=== PATIENT | male | born 1970 | race American Indian/Alaskan Native ===

== ENCOUNTER 2019-04-26 12:19 | Emergency (ER) | payer MEDICARE ==
[2019-04-26 12:28] VITALS: BP 131/89
--- NOTE | 2019-04-26 12:28 | Emergency Department Report ---
Blank Doc - Documentation Documentation: 48 y o male presents with swelling, redness to right elbow x 4 days states last week he hit his elbow on the bed while sleeping xr acc
--- NOTE | 2019-04-26 12:46 | XRay Report ---
RIGHT ELBOW, 2 views: HISTORY: Pain and swelling. There is moderate posterior soft tissue swelling. A small olecranon spur is identified. The bony structures are intact. No evidence for fracture, bone lesion or large joint effusion. IMPRESSION: Posterior soft tissue swelling. Small olecranon spur. Olecranon bursitis?
--- NOTE | 2019-04-26 13:59 | Emergency Department Report ---
ED Upper Extremity Inj HPI - General Chief Complaint: Skin/Abscess/Foreign Body Stated Complaint: BUMP ON R ELBOW Time Seen by Provider: 04/26/19 12:25 Source: patient Mode of arrival: Ambulatory Limitations: No Limitations - History of Present Illness Initial Comments: This is a 48-year-old -[place] female presents to the emergency room with swelling and pain over right elbow for one week. The patient states he bumped his elbow against bed rail about 4-5 days ago and been in pain ever since. He reports pain is worse with movement. He denies drainage, fever, weakness, numbness or tingling. Complaint: Injury to:: right, elbow Onset/Timin -: days(s) Other Extremity Injury: Elbow: Right Other Injuries: none Handedness: right Place: home Severity scale (0 -10): 4 Improves With: none Worsens With: movement of extremity Context: direct blow Associated Symptoms: denies other symptoms - Related Data Previous Rx's Medication Instructions Recorded Last Taken Type Ibuprofen [Motrin 800 MG tab] 800 mg PO Q8HR PRN #20 tablet 04/26/19 Unknown Rx Allergies Allergy/AdvReac Type Severity Reaction Status Date / Time No Known Allergies Allergy Unverified 04/26/19 12:19 ED Review of Systems ROS: Stated complaint: BUMP ON R ELBOW Other details as noted in HPI Constitutional: denies: chills, fever Respiratory: denies: cough, shortness of breath, wheezing Cardiovascular: denies: chest pain, palpitations Gastrointestinal: denies: abdominal pain, nausea, diarrhea Musculoskeletal: joint swelling (right elbow), arthralgia (right elbow pain). denies: back pain Skin: denies: rash, lesions Neurological: denies: headache, weakness, paresthesias Psychiatric: denies: anxiety, depression ED Past Medical Hx - Past Medical History Previous Medical History?: No - Surgical History Past Surgical History?: No - Social History Smoking Status: Never Smoker Substance Use Type: None - Medications Home Medications: Home Medications Medication Instructions Recorded Confirmed Last Taken Type Ibuprofen [Motrin 800 MG tab] 800 mg PO Q8HR PRN #20 tablet 04/26/19 Unknown Rx ED Physical Exam - General Limitations: No Limitations General appearance: alert, in no apparent distress - Respiratory Respiratory exam: Present: normal lung sounds bilaterally. Absent: respiratory distress - Cardiovascular Cardiovascular Exam: Present: regular rate, normal rhythm. Absent: systolic murmur, diastolic murmur, rubs, gallop - GI/Abdominal GI/Abdominal exam: Present: soft, normal bowel sounds - Extremities Exam Extremities exam: Present: normal inspection - Expanded Upper Extremity Exam Right Upper Arm exam: Present: normal inspection, full ROM Elbow exam: Present: full ROM (painful range of motion), tenderness (tenderness and swelling over the olecranon), swelling. Absent: abrasion, laceration, ecchymosis, deformity, erythema, pain w/ pronation/supination, tenderness over radial head Forearm Wrist exam: Present: normal inspection, full ROM Hand Wrist exam: Present: normal inspection, full ROM Neuro motor exam: Present: wrist extension intact, thumb opposition intact, thumb IP flexion intact, thumb adduction intact, fingers 2-5 abduction intact Vascular: Present: normal capillary refill, radial pulse - Neurological Exam Neurological exam: Present: alert, oriented X3 - Psychiatric Psychiatric exam: Present: normal affect, normal mood - Skin Skin exam: Present: warm, dry, intact, normal color. Absent: rash ED Course Vital Signs 04/26/19 12:26 Temperature 98.0 F Pulse Rate 72 Respiratory 18 Rate Blood Pressure 131/89 O2 Sat by Pulse 100 Oximetry ED Medical Decision Making - Radiology Data Radiology results: report reviewed RIGHT ELBOW, 2 views: HISTORY: Pain and swelling. There is moderate posterior soft tissue swelling. A small olecranon spur is identified. The bony structures are intact. No evidence for fracture, bone lesion or large joint effusion. IMPRESSION: Posterior soft tissue swelling. Small olecranon spur. Olecranon bursitis? - Medical Decision Making Patient was examined by me. Vitals are normal and patient is in no acute distress. Obtained a x-ray of right elbow. X-rays dictated by radiologist with the following findings: Posterior soft tissue swelling. Small olecranon spur. Olecranon bursitis? This is olecranon bursitis from exam without signs of infection. Conservative management will be started. RICE therapy and NSAIDs. Patient informed of results and ER plan. Patient discharged home in stable condition. Follow up with PCP in 2-3 days. Critical care attestation.: If time is entered above; I have spent that time in minutes in the direct care of this critically ill patient, excluding procedure time. ED Disposition Clinical Impression: Olecranon bursitis of right elbow Pain and swelling of elbow Qualifiers: Laterality: right Qualified Code(s): M25.521 - Pain in right elbow; M25.421 - Effusion, right elbow Disposition: TO HOME OR SELFCARE Is pt being admited?: No Does the pt Need Aspirin: No Condition: Stable Instructions: RICE Therapy (ED), Elbow Bursitis (ED) Additional Instructions: Rest Use ice or heat on affected area for 20 minutes and off for 2 hours. Take pain medication as needed for pain. Follow up with Primary Care Provider in 2-3 days. Prescriptions: Ibuprofen [Motrin 800 MG tab] 800 mg PO Q8HR PRN #20 tablet PRN Reason: Pain , Severe (7-10) Referrals: ARABELLA COHEN MD [Primary Care Provider] - 3-5 Days [facility] [Provider Group] - 3-5 Days [facility] [Provider Group] - 3-5 Days SHERIF CLARK DO [Staff Physician] - 3-5 Days Time of Disposition: 14:06
== END 2019-04-26 14:21 | disposition home or self-care (01) ==
LOC: ED 12:19
DX: M70.21 Olecranon bursitis, right elbow (principal); Y93.89 Activity, other specified
CPT/HCPCS: 99283

== ENCOUNTER 2020-02-19 12:39 | Outpatient (CLI) | payer MEDICARE ==
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
== END 2020-02-19 12:40 | disposition home or self-care (01) ==
LOC: XRAY 12:39
PROVIDERS: ATTEND Family Medicine
DX: M48.07 Spinal stenosis, lumbosacral region (principal); M46.07 Spinal enthesopathy, lumbosacral region; Z18.89 Other specified retained foreign body fragments
CPT/HCPCS: 72100

== ENCOUNTER 2022-03-14 14:58 | Emergency (ER) | payer MEDICARE ==
[2022-03-14 15:45] VITALS: BP 136/98
== END 2022-03-14 20:00 | disposition left against medical advice (07) ==
LOC: ED 14:58
DX: M79.606 Pain in leg, unspecified (principal); Z53.21 Procedure and treatment not carried out due to patient leaving prior to being seen by health care provider